=== PATIENT | female | born 2000 | race Caucasian/White ===

== ENCOUNTER 2022-12-05 12:08 | Emergency (ER) | payer OTHER, MEDICAID ==
[~2022-12-05] VITALS: Ht 170.2 cm; Wt 49.9 kg
[2022-12-05 12:10] VITALS: BP_SYST 127
--- NOTE | 2022-12-05 12:15 | NUR ---
Patient triaged and placed in waiting room. VSS and patient appears in no acute distress at this time. Accompanied by FRIEND, awaiting available bed, and MD notified of need for MSE.
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
--- NOTE | 2022-12-05 14:15 | NUR ---
DR KC OUT TO TRIAGE ROOM FOR EVALUATION
[2022-12-05] MEDS ORDERED: SOM350 PO (16:01)
[2022-12-05] MEDS ORDERED: IBUP-1969 PO (16:01)
--- NOTE | 2022-12-05 16:15 | NUR ---
Patient given written and verbal discharge instructions and verbalizes understanding. ER MD discussed with patient the results and treatment provided. Patient in stable condition. ID arm band removed. Rx of SOMA, IBUPROFEN given. Patient educated on pain management and to follow up with PMD. Pain Scale 0/10. Opportunity for questions provided and answered. Medication side effect fact sheet provided.
== END 2022-12-05 16:15 | disposition home or self-care (01) ==
LOC: SED 12:08
DX: S13.4XXA Sprain of ligaments of cervical spine, initial encounter (principal); S33.5XXA Sprain of ligaments of lumbar spine, initial encounter; Z79.899 Other long term (current) drug therapy; V49.50XA Passenger injured in collision with unspecified motor vehicles in traffic accident, initial encounter; Y93.89 Activity, other specified; Y92.89 Other specified places as the place of occurrence of the external cause; Y99.8 Other external cause status
CPT/HCPCS: 72040-TC; 72100-TC; 81025; 99284